=== PATIENT | female | born 2000 | race Caucasian/White ===

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

== ENCOUNTER 2022-03-29 22:00 | Emergency (ER) | payer BC ==
[~2022-03-29] VITALS: Ht 180.3 cm; Wt 95.2 kg
--- NOTE | 2022-03-29 22:27 | ED Upper Extremity ---
General Chief Complaint: Laceration Stated Complaint: LACERATION ON FINGER Nursing Triage Note: PT AMB TO [facility] WITH C/O FIRST FINGER LAC TODAY FROM CUTTING IT ON GLASS. PT WENT TO URGENT CARE IN [place] THIS MORNING AND THEY GLUED THE LAC BUT THE GLUE IS NOT KEEPING LAC CLOSED Source: patient, family Exam Limitations: no limitations History of Present Illness Date Seen by Provider: Mar 29, 2022 Time Seen by Provider: 22:04 Initial Comments 21 F here for right ring finger laceration. Injury 8 hours ago when she was cleaning out her car and cut on glass. She went to and they glued it but the glue isnt holding. Immun UTD. She is concerned about the bleeding. Allergies and Home Medications Allergies Coded Allergies: No Known Drug Allergies (Unverified , 09/24/10) Patient Home Medication List Home Medication List Reviewed: Yes Review of Systems Constitutional: no symptoms reported EENTM: no symptoms reported Respiratory: no symptoms reported Cardiovascular: no symptoms reported Gastrointestinal: no symptoms reported Genitourinary: no symptoms reported Musculoskeletal: no symptoms reported Skin: other (finger lac) Psychiatric/Neurological: No Symptoms Reported Past Xlprdec-Elovpt-Slaopb Hx Patient Social History Tobacco Use?: No Use of E-Cig and/or Vaping dev: No Substance use?: No Alcohol Use?: No Pt feels they are or have been: No Immunizations Up To Date Influenza Vaccine Up-to-Date: No; Not Current First/Initial COVID19 Vaccinat: X2 Second COVID19 Vaccination [place]: X2 Past Medical History Surgery/Hospitalization HX: DENIES Last Menstrual Period: Mar 08, 2022 Family Medical History Reviewed Nursing Family Hx No Pertinent Family Hx Physical Exam Vital Signs Vital Signs - First Documented 03/29/22 22:10 Temp 36.7 Pulse 79 Resp 14 B/P (MAP) 142/83 (102) Capillary Refill : Height, Weight, BMI Height: 5'2" Weight: 122lbs. oz. [id number]; 29.00 BMI Method: General Appearance: WD/WN, no apparent distress HEENT: normal ENT inspection, pharynx normal Neck: non-tender, supple Cardiovascular: regular rate, rhythm, no murmur Respiratory: chest non-tender, lungs clear, normal breath sounds, no respiratory distress, no accessory muscle use Gastrointestinal: normal bowel sounds, non tender, soft, no organomegaly Back: normal inspection, no vertebral tenderness Neurologic/Psychiatric: alert, normal mood/affect, oriented x 3 Skin: normal color, other (1 cm laceration lateral right ring finger ulmar surface. Superficial. Neurovascular motor and sensory intact. Mild venous bleeding. ) Progress/Results/Core Measures Results/Orders Vital Signs/I&O 03/29/22 22:10 Temp 36.7 Pulse 79 Resp 14 B/P (MAP) 142/83 (102) Blood Pressure Mean: 102 Departure Communication (Admissions) Patient is hemodynamically stable. We placed a Steri-Strip over the laceration and then again gluteal weakness. Hemostatic. Pressure dressing was placed with Coban. Discharged in stable condition with close follow-up. Impression Primary Impression: Laceration of right ring finger Qualified Codes: S61.214A - Laceration without foreign body of right ring finger without damage to nail, initial encounter Disposition: HOME, SELF-CARE Condition: Stable Departure-Patient Inst. Referrals: KINZA FERNANDEZ DO (PCP/Family) Primary Care Physician Patient Instructions: Laceration Repair With Glue ED Add. Discharge Instructions: Keep the area clean. Keep the pressure dressing on until tomorrow. Do not play volleyball for the next 3 to 5 days. Return to the emergency department for any severe concerns. All discharge instructions reviewed with patient and/or family. Voiced understa nding. Scripts No Active Prescriptions or Reported Meds MARIA LOPEZ DO Mar 29, 2022 22:27
[2022-03-29 22:29] VITALS: BP 142/83
== END 2022-03-29 22:30 | disposition home or self-care (01) ==
LOC: EDUNIT# 22:00 → ER 22:02
DX: S61.214A Laceration without foreign body of right ring finger without damage to nail, initial encounter (principal); W25.XXXA Contact with sharp glass, initial encounter